=== PATIENT | female | born 1940 | race Caucasian/White ===

== ENCOUNTER → 2018-09-26 | Outpatient (CLI) | payer MEDICARE, OTHER ==
[~2018-09-26] MED LIST: AMLO10TA6 PO; CITA20TA6 PO; LOSA100T7 PO; OMEP-110 PO; PRAV10TA2 PO
[2018-09-26 11:21] LABS: ALANINE AMINOTRANSFERASE 26 U/L (12-78); ALBUMIN 3.8 g/dL (3.4-5.0); ANION GAP 9 mmol/L (5-15); CHLORIDE 106 mmol/L (98-107)
[2018-09-26 11:24] LABS: ALKALINE PHOSPHATASE 97 U/L (45-117); BILIRUBIN,TOTAL 0.7 mg/dL (0.2-1.0); CREATININE 1.18 mg/dL (0.55-1.02); TOTAL PROTEIN 7.8 g/dL (6.4-8.2)
[2018-09-26 11:43] LABS: BASOPHILS # (AUTO) 0.05 x10^3/uL (0-0.1); BASOPHILS % (AUTO) 1 % (0-1); EOSINOPHILS % (AUTO) 1 % (1-7); LYMPHOCYTES # (AUTO) 1.97 x10^3/uL (1-3.4); LYMPHOCYTES % (AUTO) 27 % (22-44); MD NO; MEAN CORPUSCULAR HGB CONC 33.7 g/dL (32.4-35.8); MEAN CORPUSCULAR VOLUME 80.1 fL (80-100); MEAN PLATELET VOLUME 9.2 fL (7.4-10.4); MONOCYTES # (AUTO) 0.57 x10^3/uL (0.2-0.8); MONOCYTES % (AUTO) 8 % (2-9); NEUTROPHILS # (AUTO) 4.72 x10^3/uL (1.8-6.8); NEUTROPHILS % (AUTO) 64 % (42-75); PLATELET COUNT 310 x10^3/uL (130-400); RED BLOOD COUNT 4.54 x10^6/uL (3.82-5.3); RED CELL DISTRIBUTION WIDTH 14.2 % (9.6-15.2)
== END | disposition home or self-care (01) ==
LOC: STAR 10:17
PROVIDERS: ATTEND Obstetrics & Gynecology Female Pelvic Medicine and Reconstructive Surgery
DX: Z01.818 Encounter for other preprocedural examination (principal); R93.89 Abnormal findings on diagnostic imaging of other specified body structures; N39.3 Stress incontinence (female) (male); Z88.0 Allergy status to penicillin
CPT/HCPCS: 36415; 71046; 80053; 85025; 93005

== ENCOUNTER 2018-10-24 10:14 | Observation (INO) | payer MEDICARE, OTHER ==
[2018-09-26 10:44] VITALS: BP 156/68
[~2018-10-24] VITALS: Ht 170.2 cm; Wt 97.3 kg
[2018-10-24] MEDS ORDERED: FENTANYL PF 250 MCG/5ML ONE (10:26)
[2018-10-24] MEDS ORDERED: LACTATED RINGERS 1,000 ML IV SCH (10:29)
[2018-10-24] MEDS ORDERED: ACETAMINOPHEN 500 MG TABLET PO ONE (10:30)
[2018-10-24] MEDS ORDERED: FAMOTIDINE 20 MG TABLET PO ONE (10:30)
[2018-10-24] MEDS ORDERED: METOCLOPRAMIDE 10MG TABLET PO ONE (10:30)
[2018-10-24] MEDS ORDERED: GABAPENTIN 300 MG CAPSULE PO ONE (10:30)
[2018-10-24] MEDS ORDERED: CLONIDINE PO (10:38)
[2018-10-24] MEDS ORDERED: GENTAMICIN 80 MG/2 ML ONE (11:03)
[2018-10-24] MEDS ORDERED: VANCOMYCIN 500 MG ONE (11:04)
[2018-10-24] MEDS ORDERED: EPINEPHRINE 1 MG/ML, 1ML ONE (11:07)
[2018-10-24] MEDS ORDERED: BUPIVACAINE 0.25% INFIL ONE (11:40)
[2018-10-24] MEDS ORDERED: THROMBIN 5,000 UNIT VIAL TP ONE (11:47)
[2018-10-24] MEDS: LACTATED RINGERS 1,000 ML IV SCH ×2 (12:05→19:39)
[2018-10-24] MEDS ORDERED: OXYcodone 5 MG/5 ML ORAL.SOL UDC PO PRN (12:30)
[2018-10-24] MEDS ORDERED: HYDROmorphone 2 MG/ML, 1ML IVPush PRN (12:30)
[2018-10-24] MEDS ORDERED: IBUPROFEN 600 MG TABLET PO PRN (12:30)
[2018-10-24] MEDS ORDERED: ALBUTEROL SULFATE 2.5 MG/3 ML NPPB PRN (12:30)
[2018-10-24] MEDS ORDERED: HYDROcodone/APAP 5/325 TABLET PO PRN (12:30)
[2018-10-24] MEDS ORDERED: ONDANSETRON 2MG/ML, 2ML IVPush PRN (12:30)
[2018-10-24] MEDS ORDERED: FENTANYL PF 100 MCG/2ML IV PRN (12:30)
[2018-10-24] MEDS ORDERED: PROMETHAZINE 25 MG/ML, 1ML IV PRN (12:30)
[2018-10-24] MEDS ORDERED: hydrALAzine 20 MG/ML, 1ML IV PRN (12:30)
[2018-10-24] MEDS ORDERED: PROMETHAZINE 25 MG SUPP PR ONE (12:30)
[2018-10-24] MEDS ORDERED: ONDANSETRON 2MG/ML, 2ML ONE (15:36)
[2018-10-24] MEDS ORDERED: EPHEDRINE 50 MG/ML, 1ML ONE (15:36)
[2018-10-24] MEDS ORDERED: NEOSTIGMINE 1 MG/ML, 10ML ONE (15:36)
[2018-10-24] MEDS ORDERED: ROCURONIUM 10MG/ML,5ML ONE (15:36)
[2018-10-24] MEDS ORDERED: PROPOFOL 10 MG/ML, 20ML ONE (15:36)
[2018-10-24] MEDS ORDERED: CEFOTETAN 2 GM ONE (15:36)
[2018-10-24] MEDS ORDERED: GLYCOPYRROLATE 0.2MG/1ML, 5ML ONE (15:36)
[2018-10-24] MEDS ORDERED: DEXAMETHASONE 4 MG/ML, 1ML ONE (15:36)
[2018-10-24 19:30] VITALS: BP 111/67
[2018-10-24] MEDS ORDERED: OMEPRAZOLE 20 MG CAPSULE.DR PO SCH (21:00)
[2018-10-24] MEDS ORDERED: PRAVASTATIN 20 MG TABLET PO SCH (21:00)
[2018-10-24 23:55] VITALS: BP 112/57
[2018-10-25 03:00] VITALS: BP 118/57
[2018-10-25] MEDS: LACTATED RINGERS 1,000 ML IV SCH (04:05)
[2018-10-25 08:47] VITALS: BP 129/75
[2018-10-25] MEDS ORDERED: LOSARTAN 50MG TABLET PO SCH (09:00)
[2018-10-25] MEDS ORDERED: CITALOPRAM 10 MG TABLET PO SCH (09:00)
[2018-10-25] MEDS ORDERED: AMLODIPINE 10 MG TAB PO SCH (09:00)
[2018-10-25 10:18] VITALS: BP 133/65
== END 2018-10-25 12:40 | disposition home or self-care (01) ==
LOC: OUT 10:14 → ORIP 16:41 → 4NOR 18:13 → DCLOUNGE 10-25 12:31
PROVIDERS: ADMIT Obstetrics & Gynecology Female Pelvic Medicine and Reconstructive Surgery; ATTEND Obstetrics & Gynecology Female Pelvic Medicine and Reconstructive Surgery
DX: N39.46 Mixed incontinence (principal); N84.0 Polyp of corpus uteri; E11.9 Type 2 diabetes mellitus without complications; E78.00 Pure hypercholesterolemia, unspecified; K21.9 Gastro-esophageal reflux disease without esophagitis; Z82.49 Family history of ischemic heart disease and other diseases of the circulatory system; Z83.3 Family history of diabetes mellitus; Z85.820 Personal history of malignant melanoma of skin; Z87.442 Personal history of urinary calculi
CPT/HCPCS: 51992; 58558; 88305; C1771; G0378; J0171; J1100; J1580; J2405; J2704; J2710; J3010; J3370; J3490; J7120

== ENCOUNTER 2020-08-01 08:07 | Observation (INO) | payer MEDICARE, OTHER ==
[~2020-08-01] VITALS: Ht 170.2 cm; Wt 92.8 kg
[~2020-08-01 08:07] MED LIST changes: -AMLO10TA6 PO; +AMLO10TA8 PO; +CLONIDINE PO; +LOSA100T14 PO; -LOSA100T7 PO
[2020-08-01] MEDS ORDERED: SODIUM CHLORIDE 0.9% 1,000 ML IV SCH (08:32)
[2020-08-01 08:51] VITALS: BP 151/58
[2020-08-01] MEDS ORDERED: PLEASE ENTER HEIGHT AND WEIGHT MC SCH (09:00)
[2020-08-01] MEDS ORDERED: LOSA50TA14 PO (09:05)
[2020-08-01] MEDS ORDERED: CLON0.1T2 PO (09:05)
[2020-08-01] MEDS ORDERED: DOXA2TAB9 PO (09:05)
[2020-08-01] MEDS ORDERED: OMEG1CAP23 PO (09:05)
[2020-08-01] MEDS ORDERED: CHOL10003 PO (09:05)
[2020-08-01] MEDS ORDERED: METF500T17 PO (09:05)
[2020-08-01 09:32] LABS: BASOPHILS # (AUTO) 0.04 x10^3/uL (0-0.1); BASOPHILS % (AUTO) 1 % (0-1); EOSINOPHILS % (AUTO) 2 % (1-7); LYMPHOCYTES # (AUTO) 1.74 x10^3/uL (1-3.4); LYMPHOCYTES % (AUTO) 33 % (22-44); MD NO; MEAN CORPUSCULAR HEMOGLOBIN 29.2 pg (27.0-34.8); MEAN CORPUSCULAR HGB CONC 32.5 g/dL (32.4-35.8); MEAN PLATELET VOLUME 8.2 fL (7.4-10.4); MONOCYTES # (AUTO) 0.42 x10^3/uL (0.2-0.8); MONOCYTES % (AUTO) 8 % (2-9); NEUTROPHILS # (AUTO) 2.93 x10^3/uL (1.8-6.8); NEUTROPHILS % (AUTO) 56 % (42-75); PLATELET COUNT 213 x10^3/uL (130-400); RED BLOOD COUNT 4.38 x10^6/uL (3.82-5.3)
[2020-08-01 09:37] LABS: ANION GAP 7 mmol/L (5-15); CALCIUM 9.3 mg/dL (8.5-10.1); CHLORIDE 109 mmol/L (98-107); CREATININE 1.25 mg/dL (0.55-1.02)
[2020-08-01] MEDS ORDERED: FENTANYL PF 100 MCG/2ML ONE (09:41)
[2020-08-01] MEDS ORDERED: LIDOCAINE 2%, 20ML ONE ×2 (09:41→10:42)
[2020-08-01] MEDS ORDERED: MIDAZOLAM 1 MG/ML, 5ML ONE (09:41)
[2020-08-01] MEDS ORDERED: VANCOMYCIN PMX 1GM/200ML 200 ML ONE (09:42)
[2020-08-01] MEDS ORDERED: VANCOMYCIN 500 MG ONE (09:42)
[2020-08-01 11:45] VITALS: BP 138/74
[2020-08-01] MEDS ORDERED: [UNRECOGNIZED DRUG - REMARK] MC PRN (12:00)
[2020-08-01 12:29] VITALS: BP 136/74
[2020-08-01] MEDS: HYDROcodone/APAP 5/325 TABLET PO PRN ×2 (13:16→20:31)
[2020-08-01 20:20] VITALS: BP 130/66
[2020-08-01] MEDS: DOXAZOSIN 2MG TABLET PO SCH (20:28)
[2020-08-01] MEDS: LOSARTAN 50MG TABLET PO SCH (20:29)
[2020-08-01] MEDS: AMLODIPINE 5 MG TABLET PO SCH (20:29)
[2020-08-01] MEDS: SODIUM CHLORIDE FLUSH 10ML SYR IVF SCH (20:29)
[2020-08-01] MEDS ORDERED: ICN CLONIDINE 4MCG/ML ORAL.DIL PO SCH (21:00)
[2020-08-02 00:24] VITALS: BP 115/69
[2020-08-02] MEDS: HYDROcodone/APAP 5/325 TABLET PO PRN ×3 (06:36→20:43)
[2020-08-02 06:58] VITALS: BP 118/63
[2020-08-02] MEDS ORDERED: FENTANYL PF 100 MCG/2ML ONE (08:18)
[2020-08-02] MEDS ORDERED: MIDAZOLAM 1 MG/ML, 5ML ONE (08:18)
[2020-08-02] MEDS ORDERED: LIDOCAINE 2%, 20ML ONE ×3 (08:18→08:41)
[2020-08-02] MEDS ORDERED: VANCOMYCIN 500 MG ONE (08:19)
[2020-08-02] MEDS ORDERED: VANCOMYCIN PMX 1GM/200ML 200 ML ONE (08:19)
[2020-08-02] MEDS: DOXAZOSIN 2MG TABLET PO SCH ×2 (08:49→20:41)
[2020-08-02] MEDS: SODIUM CHLORIDE FLUSH 10ML SYR IVF SCH ×2 (08:49→20:41)
[2020-08-02] MEDS: CHOLECALCIFEROL 1,000 UNIT TABLET PO SCH (08:49)
[2020-08-02] MEDS: CITALOPRAM 20 MG TABLET PO SCH (08:49)
[2020-08-02 13:33] VITALS: BP 130/57
[2020-08-02 20:22] VITALS: BP 136/58
[2020-08-02] MEDS: LOSARTAN 50MG TABLET PO SCH (20:42)
[2020-08-02] MEDS: AMLODIPINE 5 MG TABLET PO SCH (20:42)
[2020-08-03 01:20] VITALS: BP 129/51
[2020-08-03 07:49] VITALS: BP 125/77
[2020-08-03] MEDS: DOXAZOSIN 2MG TABLET PO SCH (07:59)
[2020-08-03] MEDS: CITALOPRAM 20 MG TABLET PO SCH (07:59)
[2020-08-03] MEDS: CHOLECALCIFEROL 1,000 UNIT TABLET PO SCH (07:59)
[2020-08-03] MEDS: SODIUM CHLORIDE FLUSH 10ML SYR IVF SCH (08:00)
[2020-08-03] MEDS: HYDROcodone/APAP 5/325 TABLET PO PRN (08:00)
[2020-08-03] MEDS ORDERED: HYDR-3237 PO (08:15)
== END 2020-08-03 12:09 | disposition home or self-care (01) ==
LOC: CACL 08:07 → ORIP 11:36 → 5SO 11:42 → CACL 12:42 → 5SO 12:47 → DCLOUNGE 08-03 11:56
PROVIDERS: ADMIT Internal Medicine Clinical Cardiac Electrophysiology; ATTEND Internal Medicine Clinical Cardiac Electrophysiology
DX: I49.5 Sick sinus syndrome (principal); I44.30 Unspecified atrioventricular block; I12.9 Hypertensive chronic kidney disease with stage 1 through stage 4 chronic kidney disease, or unspecified chronic kidney disease; E11.22 Type 2 diabetes mellitus with diabetic chronic kidney disease; N18.3 Chronic kidney disease, stage 3 (moderate); G47.30 Sleep apnea, unspecified; R60.9 Edema, unspecified; Z79.899 Other long term (current) drug therapy; Z95.0 Presence of cardiac pacemaker; Z88.0 Allergy status to penicillin
CPT/HCPCS: 33208; 33215; 36005; 36415; 71045; 71046; 80048; 85025; 93005; 99156; 99157; C1779; C1785; C1892; G0378; J2250; J3010; J3370; J3490; Q9967